=== PATIENT | male | born 1960 | race American Indian/Alaskan Native ===

== ENCOUNTER 2017-09-08 08:10 | Inpatient (IN) | payer MEDICAID, OTHER ==
--- NOTE | 2017-09-08 08:59 | C.PDOC ---
History Of Present Illness 57 y/o male with PMhx of HIV, Endocarditis, toxoplasmosis and heroin abuse presents to ED with complaints of body aches and productive cough for 2 weeks. Patient states he is compliant with HIV medication, last check of CD4 was 3 months ago. Patient denies fever, difficulty breathing, chest pain, sob or any other complaints at this time. No IVDA. Time Seen by Provider: 09/08/17 08:36 Chief Complaint (Nursing): Flu-like Symptoms History Per: Patient History/Exam Limitations: no limitations Onset/Duration Of Symptoms: Days Current Symptoms Are (Timing): Still Present Associated Symptoms: Cough Past Medical History Reviewed: Historical Data, Nursing Documentation, Vital Signs Vital Signs: Last Vital Signs Temp 98.5 F 09/08/17 16:03 Pulse 78 09/08/17 16:03 Resp 18 09/08/17 16:03 BP 140/72 09/08/17 16:03 Pulse Ox 98 09/08/17 16:17 - Medical History PMH: Asthma, HIV Surgical History: No Surg Hx Family History: States: [place] (Father at 60s) - Social History Hx Tobacco Use: No Hx Alcohol Use: Yes Hx Substance Use: Yes (Snorts Heroin) - Immunization History Hx Tetanus Toxoid Vaccination: No Hx Influenza Vaccination: No Hx Pneumococcal Vaccination: No Review Of Systems Constitutional: Negative for: Fever, Chills Cardiovascular: Negative for: Chest Pain Respiratory: Positive for: Cough. Negative for: Shortness of Breath Musculoskeletal: Positive for: Other (bodyaches) Skin: Negative for: Rash Neurological: Negative for: Weakness, Numbness Physical Exam - Physical Exam Appears: Non-toxic, No Acute Distress Skin: Warm, Dry, No Rash Head: Atraumatic, Normacephalic Eye(s): bilateral: Normal Inspection, EOMI Ear(s): Bilateral: Normal Nose: Normal Oral Mucosa: Moist Throat: Normal, No Erythema, No Exudate Neck: Normal ROM, Supple Chest: Symmetrical Cardiovascular: Rhythm Regular Respiratory: Normal Breath Sounds, No Accessory Muscle Use, No Rales, No Rhonchi , No Wheezing Gastrointestinal/Abdominal: Soft, No Tenderness, No Guarding, No Rebound Back: No CVA Tenderness, No Vertebral Tenderness Extremity: Normal ROM, Capillary Refill (<2 seconds) Neurological/Psych: Oriented x3 ED Course And Treatment - Laboratory Results Result Diagrams: 09/08/17 09:13 09/08/17 09:13 ECG: Interpreted By Me, Viewed By Me ECG Rhythm: Sinus Rhythm Rate From EC (BPM) O2 Sat by Pulse Oximetry: 98 (RA) Pulse Ox Interpretation: Normal - Other Rad CXR X-Ray: Viewed By Me, Read By Radiologist Interpretation: Chest x-ray two views. History: Shortness of breath. Comparison: 09/05/2016. Findings: No focal infiltrate or effusion. Heart size within normal limits. Impression: No focal infiltrate or effusion. - CT Scan/US Abd/pelvis Other Rad Studies (CT/US): Read By Radiologist, Radiology Report Reviewed CT/US Interpretation: PROCEDURE: CT Abdomen and Pelvis without Oral or IV contrast. HISTORY: pain. COMPARISON: CT abdomen and pelvis without IV contrast performed 09/11/16. TECHNIQUE: Contiguous axial images of the abdomen and pelvis. No oral or IV contrast administered. Coronal and Sagittal reformats generated and reviewed. Radiation dose: Total exam DLP = 359.29 mGy-cm. This CT exam was performed using one or more of the following dose reduction techniques: Automated exposure control, adjustment of the mA and/or kV according to patient size, and/or use of iterative reconstruction technique. FINDINGS: There is limited evaluation of the solid organs without the administration of IV contrast. LOWER THORAX: No visible consolidation, pleural effusion, or pneumothorax. LIVER: Unremarkable unenhanced appearance. GALLBLADDER AND BILE DUCTS: Unremarkable unenhanced appearance. PANCREAS: Unremarkable unenhanced appearance. SPLEEN: Unremarkable unenhanced appearance. ADRENALS: Unremarkable unenhanced appearance. KIDNEYS AND URETERS : No hydronephrosis or obstructing renal calculus. 2.6 cm right renal hypodensity measures approximately 10 HU, consistent with a cyst. BLADDER: The urinary bladder appears unremarkable. REPRODUCTIVE: Unremarkable. APPENDIX: The appendix appears within normal limits of caliber. No secondary signs of acute appendicitis. BOWEL: The stomach is nondistended. Lack of oral contrast limits evaluation for bowel pathology. The bowel loops appear within normal limits of caliber without evidence of intestinal obstruction. PERITONEUM: No significant free fluid. No definite free air. LYMPH NODES: No bulky lymphadenopathy identified. VASCULATURE: No aortic aneurysm. BONES: No acute osseous abnormality is detected. OTHER FINDINGS: Large fat containing left inguinal hernia. Re-identified tiny fluid within the right lower quadrant near small right inguinal hernia. IMPRESSION: Large fat containing left inguinal hernia. Re-identified tiny fluid within the right lower quadrant knee near small right inguinal hernia. Probable right renal cyst. Progress Note: CXR ordered, Blood work, UA. Case discussed with Dr Mondragon who requests CT Abd/pelvis for hematuria. Case discussed with Dr Harding, agreed upon plan and treatment. Case discussed with social sciences instructor who discussed with Dr. Atwood who agreed. for patient to be admited under his service for opioid dependence. Dr Mondragon made aware. Disposition - Disposition Disposition: HOSPITALIZED Disposition Time: 15:53 Condition: STABLE - Clinical Impression Clinical Impression: HIV (human immunodeficiency virus infection), Hematuria, Heroin abuse - PA / VISCOSITY INSPECTOR / Resident Statement MD/DO has reviewed & agrees with the documentation as recorded. - Scribe Statement The provider has reviewed the documentation as recorded by the Soniaibmynor Price All medical record entries made by the Titus were at my direction and personally dictated by me. I have reviewed the chart and agree that the record accurately reflects my personal performance of the history, physical exam, medical decision making, and the department course for this patient. I have also personally directed, reviewed, and agree with the discharge instructions and disposition.
[2017-09-08 09:17] LABS: BASO % 0.9 % (0.0-2.0); EOS # 0.2 K/uL (0.0-0.7); EOS % 5.6 % (0.0-4.0); HEMOGLOBIN 13.7 g/dL (12.0-18.0); LYMPH # 0.8 K/uL (1.0-4.3); LYMPH % 20.3 % (20.0-40.0); MEAN CELL VOLUME 92.6 fL (80.0-94.0); MEAN CORPUSCULAR HEMOGLOBIN 31.9 pg (27.0-31.0); MEAN CORPUSCULAR HGB CONC 34.4 g/dL (33.0-37.0); MONO # 0.5 K/uL (0.0-0.8); MONO % 13.5 % (0.0-10.0); NEUT # 2.4 K/uL (1.8-7.0); NEUT % 59.7 % (50.0-75.0); NRBC % 0.2 % (0.0-2.0); RBC 4.3 Mil/uL (4.40-5.90); RED CELL DISTRIBUTION WIDTH 12.6 % (11.5-14.5); WHITE BLOOD COUNT 4.1 K/uL (4.8-10.8)
[2017-09-08 09:30] LABS: ALBUMIN 3.8 g/dL (3.5-5.0); ALT/SGPT 13 U/L (21-72); AST/SGOT 23 U/L (17-59); BLOOD UREA NITROGEN 16 mg/dL (9-20); CALCIUM 8.1 mg/dl (8.6-10.4); GFR AFRICAN-AMERICAN > 60; GFR NON-AFRICAN AMERICAN > 60
[2017-09-08 09:31] LABS: SQUAMOUS EPITHIAL 1 /hpf (0-5); URINE BILIRUBIN NEGATIVE (NEGATIVE); URINE BLOOD 3+ (NEGATIVE); URINE CLARITY Hazy (Clear); URINE COLOR Yellow (YELLOW); URINE GLUCOSE (UA) NORMAL (Normal); URINE LEUKOCYTE ESTERASE NEG Leu/uL (Negative); URINE NITRATE NEGATIVE (NEGATIVE); URINE PROTEIN 2+ mg/dL (NEGATIVE)
--- NOTE | 2017-09-08 09:42 | RAD ---
Chest x-ray two views History: Shortness of breath. Comparison: 09/05/2016 Findings: No focal infiltrate or effusion. Heart size within normal limits. Impression: No focal infiltrate or effusion.
[2017-09-08 09:59] LABS: BARBITURATES, UR NEGATIVE (NEGATIVE); BENZODIAZEPINES, UR NEGATIVE (NEGATIVE); PHENCYCLIDINE, UR NEGATIVE (NEGATIVE)
[2017-09-08 10:09] LABS: OPIATES, UR POSITIVE (NEGATIVE)
--- NOTE | 2017-09-08 13:39 | CT ---
PROCEDURE: CT Abdomen and Pelvis without Oral or IV contrast. HISTORY: pain COMPARISON: CT abdomen and pelvis without IV contrast performed 09/11/16 TECHNIQUE: Contiguous axial images of the abdomen and pelvis. No oral or IV contrast administered. Coronal and Sagittal reformats generated and reviewed. Radiation dose: Total exam DLP = 359.29 mGy-cm. This CT exam was performed using one or more of the following dose reduction techniques: Automated exposure control, adjustment of the mA and/or kV according to patient size, and/or use of iterative reconstruction technique. FINDINGS: There is limited evaluation of the solid organs without the administration of IV contrast. LOWER THORAX: No visible consolidation, pleural effusion, or pneumothorax. LIVER: Unremarkable unenhanced appearance. GALLBLADDER AND BILE DUCTS: Unremarkable unenhanced appearance. PANCREAS: Unremarkable unenhanced appearance. SPLEEN: Unremarkable unenhanced appearance. ADRENALS: Unremarkable unenhanced appearance. KIDNEYS AND URETERS: No hydronephrosis or obstructing renal calculus. 2.6 cm right renal hypodensity measures approximately 10 HU, consistent with a cyst. BLADDER: The urinary bladder appears unremarkable. REPRODUCTIVE: Unremarkable. APPENDIX: The appendix appears within normal limits of caliber. No secondary signs of acute appendicitis. BOWEL: The stomach is nondistended. Lack of oral contrast limits evaluation for bowel pathology. The bowel loops appear within normal limits of caliber without evidence of intestinal obstruction. PERITONEUM: No significant free fluid. No definite free air. LYMPH NODES: No bulky lymphadenopathy identified. VASCULATURE: No aortic aneurysm. BONES: No acute osseous abnormality is detected. OTHER FINDINGS: Large fat containing left inguinal hernia. Re-identified tiny fluid within the right lower quadrant near small right inguinal hernia. IMPRESSION: Large fat containing left inguinal hernia. Re-identified tiny fluid within the right lower quadrant knee near small right inguinal hernia. Probable right renal cyst.
[2017-09-08] MEDS ORDERED: Aluminum Hydroxide/Magnesium Hydroxide Susp (30 mL) PO PRN (17:12)
[2017-09-08] MEDS ORDERED: Benzocaine/Menthol (Cepacol) Lozenge PO PRN (17:12)
--- NOTE | 2017-09-08 19:21 | PCM.BM ---
<Divya Zambrano - Last Filed: 09/08/17 19:19> Treatment Plan Problems - Problems identified on initial assessmt potential for opiate withdrawal Date Initiated: 09/08/17 Time Initiated: 19:20 Assessment reference: NA Status: Active anxiety Date Initiated: 09/08/17 Time Initiated: 19:20 Assessment reference: NA Status: Active - Milieu Protocol Maintain good personal hygiene: daily Encourage regular showers, daily Remind patient to perform daily oral care, daily Assist patient to perform ADL's Conduct patient checks and document Observation sheet: Q15 minutes Maintain personal safety: every shift Educate patient to report safety concerns to staff, every shift Monitor environment for contraband/sharps Medication safety: Monitor for expected outcome, potential side effects: every shift, Assess barriers to learning: every shift, Assess readiness for medication education: every shift <Annette Myers - Last Filed: 09/09/17 12:39> Family Contact Family involvement: No known Family/SO - Goals for Treatment Patient goals for treatment: Complete detox and apply for [employer]. 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
--- NOTE | 2017-09-09 14:43 | PCM.PSYCH ---
Initial Psychiatric Evaluation - Initial Psychiatric Evaluation Type of Admission: Voluntary Legal Status: Capacity Chief Complaint (in patient's own words): "Heroin and cocaine" History of Present Illness and Precipitating Events: Patient is a 57 year old AA male admitted for opioid detox. He is currently single and has one son, age 34. He is unemployed and homeless. 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 He has a 30 year history of heroin use. Uses 5 to 10 bags daily, snorts. He admits to 30 years of snorting cocaine. He states he also smoke 1 to 2 packs only when he is using opioids or cocaine. Denies PCP or pills. He has tried using methadone and tried [facility] in the past. He states this is his first time in detox. His plan following detox is to attend rehab. He states that "the drugs are not the same any more and it scares me. I need to stop." He denies any current legal issues. Denies any psychiatric problems or prior hospitalizations. Family history: Denies any psychiatric problems. He states he has a good support system and actively speaks to his mother and siblings. PMH: Asthma, HIV but stopped meds months ago, wants to resume. Current Medications: Active Medications Generic Name Dose Route Start Last Admin Trade Name Freq PRN Reason Stop Dose Admin Al Hydrox/Mg Hydrox/Simethicone 30 ml 09/08/17 17:12 Maalox 30 Ml PO TID PRN Indigestion / Heartburn Benzocaine/Menthol 1 [place] 09/08/17 17:12 09/08/17 19:07 Cepacol Sore Throat PO 1 [place] QID PRN Administration Sore Throat Clonidine HCl 0.1 mg 09/08/17 17:12 Catapres PO Q8 PRN COWS Score More or Equal to 5 Guaifenesin 100 mg 09/08/17 19:04 Robitussin PO Q4H PRN Cough Hydroxyzine HCl 25 mg 09/08/17 17:13 09/09/17 00:03 Atarax PO 25 mg Q6 PRN Administration Agitation Loperamide HCl 2 mg 09/08/17 17:12 Imodium PO Q8 PRN Diarrhea Methadone HCl 15 mg 09/10/17 10:00 Methadone PO 09/13/17 09:59 Q24H SELAM Taper Ondansetron HCl 4 mg 09/08/17 17:12 Zofran Tab PO Q8 PRN Nausea/Vomiting Pneumococcal Polyvalent Vaccine 0.5 ml 09/11/17 10:53 Pneumovax 23 Vaccine IM 09/11/17 10:54 .ONCE ONE Pseudoephedrine HCl 60 mg 09/08/17 17:12 Sudafed Tab PO QID PRN Nasal/Sinus Congestion Past Psychiatric History - Past Psychiatric History Previous Treatment History: None Pertinent Medical Hx (Current Medical&Sleep Prob, Allergies): Allergies Allergy/AdvReac Type Severity Reaction Status Date / Time shellfish Allergy Uncoded 09/05/16 21:11 Atovaquone [Mepron] 750 mg PO BID #0 packet 09/13/16 Azithromycin [Zithromax] 1,200 mg PO Q7D #0 tab 09/13/16 Darunavir Ethanolate [Prezista] 600 mg PO BID #0 tab 09/13/16 Emtricitabine/Tenofovir Diso [Truvada 200 MG-300 MG] 1 tab PO DAILY #0 tab 09/13 Pyrimethamine [Daraprim] 50 mg PO DAILY #0 tab 09/13/16 Ritonavir [Norvir] 100 mg PO BIDBS #0 tab 09/13/16 levETIRAcetam [Keppra] 750 mg PO BID #0 tab 09/13/16 sulfADIAZINE [Sulfadiazine] 1,000 mg PO Q6H #0 tab 09/13/16 Review of Systems - Review of Systems All systems: reviewed and no additional remarkable complaints except - Neurological Neurological: UNREMARKABLE - Psychiatric Psychiatric: Abnormal Sleep Pattern, Anxiety, Difficulty Concentrating. absent : Hallucinations, Homicidal Ideation, Suicidal Ideation Mental Status Examination - Personal Presentation Personal Presentation: Looks stated age - Affect Affect: Constricted - Motor Activity Motor Activity: Calm - Reliability in Providing Information Reliability in Providing Information: Good - Speech Speech: Organized - Mood Mood: Neutral - Formal Thought Process Formal Thought Process: No Impairment - Cognitive Functions Orientation: Person, Place, Situation, Time Sensorium: Lethargic Attention/Concentration: Attentive Abstract Thinking: [place] Estimate of Intelligence: Below average Judgement: Intact, as evidence by: Insight regarding need for hospitalization Memory: Recent intact, as evidence by: Ability to recall events of the day, Remote intact, as evidenced by: Abilit to recall sig. life events - Risk Risk: Withdrawal, Diminished functioning - Strength & Assets Inventory Strength & Assets Inventory: Family support, Cooperative - Limitations Limitations: Other DSM 5 DX - DSM 5 DSM 5 Diagnosis: Opioid use d/o - severe Opioid withdrawal Cocaine use d/o - severe - Recommended/Plan of Treatment Treatment Recommendations and Plan of Treatment: Started on Methadone detox As needed medications Attend groups and activities Supportive therapy and psychoeducation [place] for abstinence CBT for relapse prevention Encourage MAT Refer to rehab or IOP Attend self-help groups as well 32 mins Projected ELOS: 5-6 days Prognosis: good
[2017-09-09 15:56] LABS: URINE BILIRUBIN NEGATIVE (NEGATIVE); URINE BLOOD NEGATIVE (NEGATIVE); URINE CLARITY Clear (Clear); URINE COLOR Yellow (YELLOW); URINE GLUCOSE (UA) NORMAL (Normal); URINE LEUKOCYTE ESTERASE NEG Leu/uL (Negative); URINE NITRATE NEGATIVE (NEGATIVE); URINE PROTEIN 1+ mg/dL (NEGATIVE)
[2017-09-09] MEDS: guaiFENesin 100 mg/5 ml Syrup UD PO PRN ×2 (16:43→21:53)
[2017-09-09] MEDS ORDERED: Magnesium Hydroxide Susp 30 ml UD PO ONE (18:00)
--- NOTE | 2017-09-10 12:57 | PCM.PYCHPN ---
Psychiatric Progress Note - Psychiatric Progress Note Patient seen today, length of contact: 16 mins Patient Chief Complaint: "Tired" Problems Identified/Issues Discussed: The pt is seen, chart reviewed, case discussed with staff. Patient stated he was uncomfortable through most of the night with sweating requiring him to change his gown. The pt is compliant with medications and reports no side-effects. Symptoms are improving but needs more time to stabilize. After care discussed, support and psychoeducation given. Medication Change: Yes Medical Record Reviewed: Yes Mental Status Examination - Cognitive Function Orientation: Person, Place, Situation, Time Memory: Intact Attention: WNL Concentration: WNL Association: WNL Fund of Knowledge: WNL - Mood Mood: Neutral - Affect Affect: Constricted - Formal Thought Process Formal Thought Process: No Impairment - Suicidal Ideation Suicidal Ideation: No - Homicidal Ideation Homicidal Ideation: No Goal/Treatment Plan - Goal/Treatment Plan Need for Continued Stay: Discharge may exacerbated symptoms, Severe functional impairment Progress Toward Problem(s) and Goals/Treatment Plan: Started on Methadone detox As needed medications Attend groups and activities Supportive therapy and psychoeducation [place] for abstinence CBT for relapse prevention Encourage MAT Refer to rehab or IOP Attend self-help groups as well
[2017-09-10] MEDS ORDERED: Vitamins A & D Oint UD Foilpak TOP PRN (13:52)
[2017-09-10] MEDS: Emtricitabine-Tenofovir 200 mg-300 mg Tab PO SCH (14:38)
--- NOTE | 2017-09-10 17:13 | CP.PCM.CON ---
History of Present Illness - History of Present Illness History of Present Illness: 57 y/o male with PMhx of HIV, Endocarditis, toxoplasmosis and heroin abuse presents to ED with complaints of body aches and productive cough for 2 weeks. Patient states he is compliant with HIV medication, last check of CD4 was 3 months ago. Patient denies fever, difficulty breathing, chest pain, sob or any other complaints at this time. No IVDA. 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 Neuro Dr Butts - Medical History PMH: Asthma, HIV Surgical History: No Surg Hx Family History: States: [place] (Father at 60s) Review of Systems - Constitutional Constitutional: As Per HPI - EENT Eyes: absent: As Per HPI, Blind Spots, Blurred Vision, Change in Vision, Decreased Night Vision, Diplopia, Discharge, Dry Eye, Exophthalmos, Floaters, Irritation, Itchy Eyes, Loss of Peripheral Vision, Pain, Photophobia, Requires Corrective Lenses, Sees Flashes, Spots in Vision, Tunnel Vision, Other Visual Disturbances, Loss of Vision, Other Ears: absent: As Per HPI, Decreased Hearing, Ear Discharge, Ear Pain, Tinnitus, Abnormal Hearing, Disequilibrium, Dizziness, Other Nose/Mouth/Throat: absent: As Per HPI, Epistaxis, Nasal Congestion, Nasal Discharge, Nasal Obstruction, Nasal Trauma, Nose Pain, Post Nasal Drip, Sinus Pain, Sinus Pressure, Bleeding Gums, Change in Voice, Dental Pain, Dry Mouth, Dysphagia, Halitosis, Hoarsness, Lip Swelling, Mouth Lesions, Mouth Pain, Odynophagia, Sore Throat, Throat Swelling, Tongue Swelling, Facial Pain, Neck Pain, Neck Mass, Other - Cardiovascular Cardiovascular: absent: As Per HPI, Acrocyanosis, Chest Pain, Chest Pain at Rest , Chest Pain with Activity, Claudication, Diaphoresis, Dyspnea, Dyspnea on Exertion, Edema, Irregular Heart Rhythm, Pain Radiating to Arm/Neck/Jaw, Leg Edema, Leg Ulcers, Lightheadedness, Orthopnea, Palpitations, Paroxysmal Nocturnal Dyspnea, Pedal Edema, Radiating Pain, Rapid Heart Rate, Slow Heart Rate, Syncope, Other - Respiratory Respiratory: absent: As Per HPI, Cough, Dyspnea, Hemoptysis, Dyspnea on Exertion , Wheezing, Snoring, Stridor, Pain on Inspiration, Chest Congestion, Excessive Mucous Production, Change in Mucous Color, Pain with Coughing, Other - Gastrointestinal Gastrointestinal: absent: As Per HPI, Abdominal Pain, Belching, Bloating, Change in Bowel Habits, Change in Stool Character, Coffee Ground Emesis, Constipation, Cramping, Diarrhea, Dyspepsia, Dysphagia, Early Satiety, Excessive Flatus, Fecal Incontinence, Heartburn, Hematemesis, Hematochezia, Loose Stools, Melena, Nausea, Odynophagia, Temesmus, Vomiting, Other - Genitourinary Genitourinary: absent: As Per HPI, Change in Urinary Stream, Difficulty Urinating, Dysuria, Flank Pain, Hematuria, Pyuria, Nocturia, Urinary Incontinence, Urinary Frequency, Urinary Hesitance, Urinary Urgency, Voiding Freq/Small Amts, Freq UTI, Hx Renal/Bladder Calculi, Hx /Renal Surgery, Bladder Distension, Other - Musculoskeletal Musculoskeletal: absent: As Per HPI, Abnormal Gait, Arthralgias, Atrophy, Back Pain, Deformity, Joint Swelling, Limited Range of Motion, Loss of Height, Muscle Cramps, Muscle Weakness, Myalgias, Neck Pain, Numbness, Radiating Pain into Limb, Stiffness, Tingling, Other - Integumentary Integumentary: absent: As Per HPI, Acne, Alopecia, Bleeding Lesions, Change in Hair, Change in Nails, Change in Pigmentation, Changing Lesions, Dry Skin, Erythema, Furuncle, Hirsutism, Lesions, New Lesions, Non-Healing Lesions, Photosensitivity, Pruritus, Rash, Skin Pain, Skin Ulcer, Sores, Striae, Swelling , Unusual Bruising, Wounds, Jaundice, Other - Neurological Neurological: As Per HPI - Psychiatric Psychiatric: absent: As Per HPI, Abnormal Sleep Pattern, Anhedonia, Anxiety, Auditory Hallucinations, Behavioral Changes, Change in Appetite, Change in Libido, Confusion, Depression, Difficulty Concentrating, Hallucinations, Homicidal Ideation, Hopelessness, Irritability, Memory Loss, Mood Swings, Panic Attacks, Paranoia, Suicidal Ideation, Visual Hallucinations, Tactile Hallucinations, Other - Endocrine Endocrine: absent: As Per HPI, Change in Body Appearance, Change in Libido, Cold Intolorance, Deepening of Voice, Excessive Sweating, Fatigue, Flushing, Heat Intolorance, Increase in Ring/Shoe/Hat Size, Palpitations, Polydipsia, Polyphagia, Polyuria, Other - Hematologic/Lymphatic Hematologic: absent: As Per HPI, Easy Bleeding, Easy Bruising, Lymphadenopathy, Other Past Patient History - Infectious Disease Hx of Infectious Diseases: None - Past Medical History & Family History Past Medical History?: Yes - Past Social History Smoking Status: Current Some Days Smoker - CARDIAC Hx Cardiac Disorders: No - PULMONARY Hx Asthma: Yes - NEUROLOGICAL Hx Neurological Disorder: No - HEENT Hx HEENT Problems: No - RENAL Hx Chronic Kidney Disease: No - ENDOCRINE/METABOLIC Hx Endocrine Disorders: No - HEMATOLOGICAL/ONCOLOGICAL Hx Human Immunodeficiency Virus (HIV): Yes - INTEGUMENTARY Hx Dermatological Problems: No - MUSCULOSKELETAL/RHEUMATOLOGICAL Hx Falls: No - GASTROINTESTINAL Hx Gastrointestinal Disorders: No - GENITOURINARY/GYNECOLOGICAL Hx Genitourinary Disorders: No - PSYCHIATRIC Hx Substance Use: Yes - SURGICAL HISTORY Hx Surgeries: No - ANESTHESIA Hx Anesthesia: Yes Hx Anesthesia Reactions: No Hx Malignant Hyperthermia: No Meds Allergies/Adverse Reactions: Allergies Allergy/AdvReac Type Severity Reaction Status Date / Time shellfish Allergy Uncoded 09/05/16 21:11 - Medications Medications: Current Medications Al Hydrox/Mg Hydrox/Simethicone (Maalox 30 Ml) 30 ml PO TID PRN PRN Reason: Indigestion / Heartburn Atovaquone (Mepron) 750 mg PO BID [facility] Benzocaine/Menthol (Cepacol Sore Throat) 1 modesta PO QID PRN PRN Reason: Sore Throat Last Admin: 09/08/17 19:07 Dose: 1 modesta Clonidine HCl (Catapres) 0.1 mg PO Q8 PRN PRN Reason: COWS Score More or Equal to 5 Darunavir (Prezista) 800 mg PO DAILY [facility] Last Admin: 09/10/17 14:38 Dose: 800 mg Emtricitabine/Tenofovir (Truvada 200 Mg-300 Mg) 1 tab PO DAILY [facility] Last Admin: 09/10/17 14:38 Dose: 1 tab Guaifenesin (Robitussin) 100 mg PO Q4H PRN PRN Reason: Cough Last Admin: 09/09/17 21:53 Dose: 100 mg Hydroxyzine HCl (Atarax) 25 mg PO Q6 PRN PRN Reason: Agitation Last Admin: 09/09/17 21:53 Dose: 25 mg Loperamide HCl (Imodium) 2 mg PO Q8 PRN PRN Reason: Diarrhea Methadone HCl (Methadone) 15 mg PO Q24H [facility] PRN Reason: Taper Stop: 09/13/17 09:59 Last Admin: 09/10/17 09:42 Dose: 15 mg Ondansetron HCl (Zofran Tab) 4 mg PO Q8 PRN PRN Reason: Nausea/Vomiting Pneumococcal Polyvalent Vaccine (Pneumovax 23 Vaccine) 0.5 ml IM .ONCE ONE Stop: 09/11/17 10:54 Pseudoephedrine HCl (Sudafed Tab) 60 mg PO QID PRN PRN Reason: Nasal/Sinus Congestion Ritonavir (Norvir) 100 mg PO DAILY [facility] Sulfadiazine (Sulfadiazine) 1,000 mg PO Q6H [facility] Last Admin: 09/10/17 14:40 Dose: Not Given Vitamin A (Vitamin A & D Oint Ud Foilpak) 1 ea TOP BID PRN PRN Reason: Dry skin Last Admin: 09/10/17 14:01 Dose: 1 ea Physical Exam - Constitutional Appears: Non-toxic, Chronically Ill - Head Exam Head Exam: NORMOCEPHALIC - Eye Exam Eye Exam: PERRL. absent: Scleral icterus - ENT Exam ENT Exam: Mucous Membranes Dry - Neck Exam Neck exam: Negative for: Lymphadenopathy - Respiratory Exam Respiratory Exam: Decreased Breath Sounds, Clear to Auscultation Bilateral - Cardiovascular Exam Cardiovascular Exam: REGULAR RHYTHM - GI/Abdominal Exam GI & Abdominal Exam: Diminished Bowel Sounds, Soft. absent: Tenderness - Rectal Exam Rectal Exam: Deferred - Exam Exam: NORMAL INSPECTION - Extremities Exam Extremities exam: Positive for: pedal pulses present. Negative for: calf tenderness, pedal edema, tenderness - Back Exam Back exam: absent: CVA tenderness (L), CVA tenderness (R) - Neurological Exam Neurological exam: Alert, CN II-XII Intact, Oriented x3, Reflexes Normal - Psychiatric Exam Psychiatric exam: Normal Mood - Skin Skin Exam: Dry, Intact Results - Vital Signs Recent Vital Signs: Last Vital Signs Temp 98.4 F 09/10/17 13:00 Pulse 71 09/10/17 13:00 Resp 18 09/10/17 13:00 BP 110/76 09/10/17 13:00 Pulse Ox 97 09/10/17 13:00 - Labs Result Diagrams: 09/08/17 09:13 09/08/17 09:13 Assessment & Plan (1) Toxoplasmosis Status: Acute (2) HIV (human immunodeficiency virus infection) Status: Acute (3) Hematuria Status: Acute (4) Heroin abuse Status: Acute (5) Numbness on right side Status: Acute - Assessment and Plan (Free Text) 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
--- NOTE | 2017-09-10 17:15 | CP.PCM.PN ---
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 will resme Dr Butts is his neurologist Objective - Vital Signs/Intake and Output Vital Signs (last 24 hours): Temp Pulse Resp BP Pulse Ox 98.4 F 71 18 110/76 97 09/10/17 13:00 09/10/17 13:00 09/10/17 13:00 09/10/17 13:00 09/10/17 13:00 - Medications Medications: Current Medications Al Hydrox/Mg Hydrox/Simethicone (Maalox 30 Ml) 30 ml PO TID PRN PRN Reason: Indigestion / Heartburn Atovaquone (Mepron) 750 mg PO BID [facility] Benzocaine/Menthol (Cepacol Sore Throat) 1 modesta PO QID PRN PRN Reason: Sore Throat Last Admin: 09/08/17 19:07 Dose: 1 modesta Clonidine HCl (Catapres) 0.1 mg PO Q8 PRN PRN Reason: COWS Score More or Equal to 5 Darunavir (Prezista) 800 mg PO DAILY [facility] Last Admin: 09/10/17 14:38 Dose: 800 mg Emtricitabine/Tenofovir (Truvada 200 Mg-300 Mg) 1 tab PO DAILY [facility] Last Admin: 09/10/17 14:38 Dose: 1 tab Guaifenesin (Robitussin) 100 mg PO Q4H PRN PRN Reason: Cough Last Admin: 09/09/17 21:53 Dose: 100 mg Hydroxyzine HCl (Atarax) 25 mg PO Q6 PRN PRN Reason: Agitation Last Admin: 09/09/17 21:53 Dose: 25 mg Loperamide HCl (Imodium) 2 mg PO Q8 PRN PRN Reason: Diarrhea Methadone HCl (Methadone) 15 mg PO Q24H [facility] PRN Reason: Taper Stop: 09/13/17 09:59 Last Admin: 09/10/17 09:42 Dose: 15 mg Ondansetron HCl (Zofran Tab) 4 mg PO Q8 PRN PRN Reason: Nausea/Vomiting Pneumococcal Polyvalent Vaccine (Pneumovax 23 Vaccine) 0.5 ml IM .ONCE ONE Stop: 09/11/17 10:54 Pseudoephedrine HCl (Sudafed Tab) 60 mg PO QID PRN PRN Reason: Nasal/Sinus Congestion Ritonavir (Norvir) 100 mg PO DAILY [facility] Sulfadiazine (Sulfadiazine) 1,000 mg PO Q6H [facility] Last Admin: 09/10/17 14:40 Dose: Not Given Vitamin A (Vitamin A & D Oint Ud Foilpak) 1 ea TOP BID PRN PRN Reason: Dry skin Last Admin: 09/10/17 14:01 Dose: 1 ea - Labs Labs: 09/08/17 09:13 09/08/17 09:13 - Constitutional Appears: Non-toxic, Cachectic, Chronically Ill - Head Exam Head Exam: NORMOCEPHALIC - Eye Exam Eye Exam: PERRL. absent: Scleral icterus - ENT Exam ENT Exam: Mucous Membranes Dry - Neck Exam Neck Exam: absent: Lymphadenopathy - Respiratory Exam Respiratory Exam: Decreased Breath Sounds, Clear to Ausculation Bilateral - Cardiovascular Exam Cardiovascular Exam: REGULAR RHYTHM, +S1, +S2 - GI/Abdominal Exam GI & Abdominal Exam: Distended, Soft. absent: Tenderness - Rectal Exam Rectal Exam: Deferred - Exam Exam: NORMAL INSPECTION - Extremities Exam Extremities Exam: absent: Pedal Edema - Back Exam Back Exam: absent: CVA tenderness (L), CVA tenderness (R) - Neurological Exam Neurological Exam: Alert, Awake, CN II-XII Intact, Oriented x3 - Psychiatric Exam Psychiatric exam: Normal Mood - Skin Skin Exam: Dry, Intact Assessment and Plan (1) Toxoplasmosis Status: Acute (2) HIV (human immunodeficiency virus infection) Status: Acute (3) Hematuria Status: Acute (4) Heroin abuse Status: Acute (5) Numbness on right side Status: Acute
[2017-09-10] MEDS: Atovaquone 750 mg/5 ml Susp UD PO SCH (17:42)
--- NOTE | 2017-09-10 22:50 | CP.PCM.CON ---
History of Present Illness - History of Present Illness History of Present Illness: Stopped HIV medicine on his own Toxoplasma Infection Endocarditis Started on Methadone detox Started on a program for h/o 2 substance abuse, Heroin and Cocaine 57 y/o male with PMhx of HIV, Endocarditis, toxoplasmosis and heroin abuse presents to ED with complaints of body aches and productive cough for 2 weeks. Patient states he is compliant with HIV medication, last check of CD4 was 3 months ago. Patient denies fever, difficulty breathing, chest pain, sob or any other complaints at this time. No IVDA. 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 Dr Butts - Medical History PMH: Asthma, HIV Surgical History: No Surg Hx Family History: States: [place] (Father at 60s) Review of Systems - Constitutional Constitutional: As Per HPI EENT Eyes: absent Ears: absent Nose/Mouth/Throat: absent - Cardiovascular Cardiovascular: absent Respiratory Respiratory: absent - Gastrointestinal Gastrointestinal: absent - Genitourinary Genitourinary: absent Musculoskeletal Musculoskeletal - Psychiatric Psychiatric: absent - Endocrine Endocrine: absent - Hematologic/Lymphatic Hematologic: absent Past Patient History - Infectious Disease Hx of Infectious Diseases: treated for acquired immune deficiency syndrome - Past Medical History & Family History Past Medical History?: HIV and Substance abuse - Past Social History Smoking Status: Current Some Days Smoker - CARDIAC Hx Cardiac Disorders: No - PULMONARY Hx Asthma: Yes - NEUROLOGICAL Hx Neurological Disorder: No - HEENT Hx HEENT Problems: No - RENAL Hx Chronic Kidney Disease: No - ENDOCRINE/METABOLIC Hx Endocrine Disorders: No - HEMATOLOGICAL/ONCOLOGICAL Hx Human Immunodeficiency Virus (HIV): Yes - INTEGUMENTARY Hx Dermatological Problems: No - MUSCULOSKELETAL/RHEUMATOLOGICAL Hx Falls: No - GASTROINTESTINAL Hx Gastrointestinal Disorders: No - GENITOURINARY/GYNECOLOGICAL Hx Genitourinary Disorders: No - PSYCHIATRIC Hx Substance Use: Yes - SURGICAL HISTORY Hx Surgeries: No - ANESTHESIA Hx Anesthesia: Yes Hx Anesthesia Reactions: No Hx Malignant Hyperthermia: No Meds Allergies/Adverse Reactions: Allergies Allergy/AdvReac Type Severity Reaction Status Date / Time shellfish Allergy Uncoded 09/05/16 21:11 - Medications Medications: Current Medications Al Hydrox/Mg Hydrox/Simethicone (Maalox 30 Ml) 30 ml PO TID PRN PRN Reason: Indigestion / Heartburn Atovaquone (Mepron) 750 mg PO BID [facility] Benzocaine/Menthol (Cepacol Sore Throat) 1 modesta PO QID PRN PRN Reason: Sore Throat Last Admin: 09/08/17 19:07 Dose: 1 modesta Clonidine HCl (Catapres) 0.1 mg PO Q8 PRN PRN Reason: COWS Score More or Equal to 5 Darunavir (Prezista) 800 mg PO DAILY [facility] Last Admin: 09/10/17 14:38 Dose: 800 mg Emtricitabine/Tenofovir (Truvada 200 Mg-300 Mg) 1 tab PO DAILY [facility] Last Admin: 09/10/17 14:38 Dose: 1 tab Guaifenesin (Robitussin) 100 mg PO Q4H PRN PRN Reason: Cough Last Admin: 09/09/17 21:53 Dose: 100 mg Hydroxyzine HCl (Atarax) 25 mg PO Q6 PRN PRN Reason: Agitation Last Admin: 09/09/17 21:53 Dose: 25 mg Loperamide HCl (Imodium) 2 mg PO Q8 PRN PRN Reason: Diarrhea Methadone HCl (Methadone) 15 mg PO Q24H [facility] PRN Reason: Taper Stop: 09/13/17 09:59 Last Admin: 09/10/17 09:42 Dose: 15 mg Ondansetron HCl (Zofran Tab) 4 mg PO Q8 PRN PRN Reason: Nausea/Vomiting Pneumococcal Polyvalent Vaccine (Pneumovax 23 Vaccine) 0.5 ml IM .ONCE ONE Stop: 09/11/17 10:54 Pseudoephedrine HCl (Sudafed Tab) 60 mg PO QID PRN PRN Reason: Nasal/Sinus Congestion Ritonavir (Norvir) 100 mg PO DAILY [facility] Sulfadiazine (Sulfadiazine) 1,000 mg PO Q6H [facility] Last Admin: 09/10/17 14:40 Dose: Not Given Vitamin A (Vitamin A & D Oint Ud Foilpak) 1 ea TOP BID PRN PRN Reason: Dry skin Last Admin: 09/10/17 14:01 Dose: 1 ea Recent Vital Signs: Last Vital Signs Temp 98.4 F 09/10/17 13:00 Pulse 71 09/10/17 13:00 Resp 18 09/10/17 13:00 BP 110/76 09/10/17 13:00 Pulse Ox 97 09/10/17 13:00 Assessment & Plan (1) Toxoplasmosis Status: Acute (2) HIV (human immunodeficiency virus infection) Status: Acute (3) Hematuria Status: Acute (4) Heroin abuse Status: Acute (5) Numbness on right side Status: Acute - Assessment and Plan (Free Text) 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 Past Patient History - Infectious Disease Hx of Infectious Diseases: None - Past Medical History & Family History Past Medical History?: Yes - Past Social History Smoking Status: Current Some Days Smoker - CARDIAC Hx Cardiac Disorders: No - PULMONARY Hx Asthma: Yes - NEUROLOGICAL Hx Neurological Disorder: No - HEENT Hx HEENT Problems: No - RENAL Hx Chronic Kidney Disease: No - ENDOCRINE/METABOLIC Hx Endocrine Disorders: No - HEMATOLOGICAL/ONCOLOGICAL Hx Human Immunodeficiency Virus (HIV): Yes - INTEGUMENTARY Hx Dermatological Problems: No - MUSCULOSKELETAL/RHEUMATOLOGICAL Hx Falls: No - GASTROINTESTINAL Hx Gastrointestinal Disorders: No - GENITOURINARY/GYNECOLOGICAL Hx Genitourinary Disorders: No - PSYCHIATRIC Hx Substance Use: Yes - SURGICAL HISTORY Hx Surgeries: No - ANESTHESIA Hx Anesthesia: Yes Hx Anesthesia Reactions: No Hx Malignant Hyperthermia: No Meds Home Medications: Home Medication List Medication Instructions Recorded Confirmed Type Atovaquone [Mepron] 750 mg PO BID #60 packet 09/11/17 Rx Darunavir [Prezista] 800 mg PO DAILY #30 tab 09/11/17 Rx Emtricitabine/Tenofovir Diso 1 tab PO DAILY #30 tab 09/11/17 Rx [Truvada 200 MG-300 MG] Ritonavir [Norvir] 100 mg PO DAILY #30 tab 09/11/17 Rx sulfADIAZINE [Sulfadiazine] 1,000 mg PO Q6H #120 tab 09/11/17 Rx Allergies/Adverse Reactions: Allergies Allergy/AdvReac Type Severity Reaction Status Date / Time shellfish Allergy Uncoded 09/05/16 21:11 - Medications Medications: Current Medications Al Hydrox/Mg Hydrox/Simethicone (Maalox 30 Ml) 30 ml PO TID PRN PRN Reason: Indigestion / Heartburn Atovaquone (Mepron) 750 mg PO BID [facility] Last Admin: 09/10/17 17:42 Dose: 750 mg Benzocaine/Menthol (Cepacol Sore Throat) 1 modesta PO QID PRN PRN Reason: Sore Throat Last Admin: 09/08/17 19:07 Dose: 1 modesta Clonidine HCl (Catapres) 0.1 mg PO Q8 PRN PRN Reason: COWS Score More or Equal to 5 Darunavir (Prezista) 800 mg PO DAILY [facility] Last Admin: 09/10/17 14:38 Dose: 800 mg Emtricitabine/Tenofovir (Truvada 200 Mg-300 Mg) 1 tab PO DAILY [facility] Last Admin: 09/10/17 14:38 Dose: 1 tab Guaifenesin (Robitussin) 100 mg PO Q4H PRN PRN Reason: Cough Last Admin: 09/09/17 21:53 Dose: 100 mg Hydroxyzine HCl (Atarax) 25 mg PO Q6 PRN PRN Reason: Agitation Last Admin: 09/09/17 21:53 Dose: 25 mg Loperamide HCl (Imodium) 2 mg PO Q8 PRN PRN Reason: Diarrhea Methadone HCl (Methadone) 15 mg PO Q24H [facility] PRN Reason: Taper Stop: 09/13/17 09:59 Last Admin: 09/10/17 09:42 Dose: 15 mg Ondansetron HCl (Zofran Tab) 4 mg PO Q8 PRN PRN Reason: Nausea/Vomiting Pneumococcal Polyvalent Vaccine (Pneumovax 23 Vaccine) 0.5 ml IM .ONCE ONE Stop: 09/11/17 10:54 Pseudoephedrine HCl (Sudafed Tab) 60 mg PO QID PRN PRN Reason: Nasal/Sinus Congestion Ritonavir (Norvir) 100 mg PO DAILY [facility] Sulfadiazine (Sulfadiazine) 1,000 mg PO Q6H [facility] Last Admin: 09/10/17 19:56 Dose: 1,000 mg Vitamin A (Vitamin A & D Oint Ud Foilpak) 1 ea TOP BID PRN PRN Reason: Dry skin Last Admin: 09/10/17 14:01 Dose: 1 ea Physical Exam - Neurological Exam Additional comments: Mental Status: Awake, Alert Oriented X3 with efforts Speech is fluent coherent Cranial Nerves II to XII: No deficits Motor: Normal Tone, Power DTR 0/4 Toes are down going on Plantar Stimulation Sensory: Reduced sensation peripherally in both UEs and LEs Cerebellar: Normal FNT Stature and Gait: Not tested. Results - Vital Signs Recent Vital Signs: Last Vital Signs Temp 98.6 F 09/10/17 22:00 Pulse 74 01/10/18 22:00 Resp 16 09/10/17 22:00 BP 119/74 09/10/17 22:00 Pulse Ox 97 09/10/17 22:00 - Labs Result Diagrams: 09/08/17 09:13 09/08/17 09:13 Assessment & Plan (1) HIV (human immunodeficiency virus infection) Status: Chronic (2) Hematuria Status: Acute (3) Heroin abuse Status: Acute (4) Toxoplasmosis Status: Acute (5) Asthma Status: Chronic (6) Dizziness Status: Acute (7) Leukocytopenia Status: Acute (8) Numbness on right side Assessment and Plan: R/O Radiculopathy, R/O Neuropathy. Status: Acute (9) Encephalopathy Assessment and Plan: Must be ruled out as a complication of his HIV infection or his Toxoplasma infection. Seizures and CVA are also to be ruled out by appropriate W/U. Status: Acute
--- NOTE | 2017-09-10 23:18 | CARD ---
APPROVED REPORT EKG Measurement Heart [id number] <Conclusion> Normal sinus rhythm Minimal voltage criteria for LVH, may be normal variant Borderline ECG
[2017-09-10] MEDS: guaiFENesin 100 mg/5 ml Syrup UD PO PRN (23:33)
[2017-09-11] MEDS: Emtricitabine-Tenofovir 200 mg-300 mg Tab PO SCH (09:18)
[2017-09-11] MEDS: Atovaquone 750 mg/5 ml Susp UD PO SCH ×2 (10:32→17:37)
[2017-09-11] MEDS ORDERED: Pneumococcal 23-Valent Vaccine IM ONE (10:53)
--- NOTE | 2017-09-11 14:06 | PCM.PYCHPN ---
Psychiatric Progress Note - Psychiatric Progress Note Patient seen today, length of contact: 16 mins Patient Chief Complaint: "I'm feeling good but I don't sleep" Problems Identified/Issues Discussed: The pt is seen, chart reviewed, case discussed with staff. He is still complaining of poor sleep and night sweats. Currently has no other withdrawal symptoms The pt is compliant with medications and reports no side-effects. Symptoms are improving but needs more time to stabilize. After care discussed, support and psychoeducation given. Medication Change: Yes Medical Record Reviewed: Yes Mental Status Examination - Cognitive Function Orientation: Person, Place, Situation, Time Memory: Intact Attention: WNL Concentration: WNL Association: WNL Fund of Knowledge: WNL - Mood Mood: Neutral - Affect Affect: Constricted - Formal Thought Process Formal Thought Process: No Impairment - Suicidal Ideation Suicidal Ideation: No - Homicidal Ideation Homicidal Ideation: No Goal/Treatment Plan - Goal/Treatment Plan Need for Continued Stay: Discharge may exacerbated symptoms, Severe functional impairment Progress Toward Problem(s) and Goals/Treatment Plan: Started on Methadone detox As needed medications Attend groups and activities Supportive therapy and psychoeducation AL for abstinence CBT for relapse prevention Encourage MAT Refer to rehab or IOP Attend self-help groups as well
--- NOTE | 2017-09-11 19:23 | CP.PCM.PN ---
Subjective - Date & Time of Evaluation Date of Evaluation: 09/11/17 Time of Evaluation: 07:00 - Subjective Subjective: restarted on HAART rx seen by Dr Butts advised follow up to check T cells and Viral load Objective - Vital Signs/Intake and Output Vital Signs (last 24 hours): Temp Pulse Resp BP Pulse Ox 98.1 F 74 18 129/84 97 09/11/17 19:15 09/11/17 19:15 09/11/17 19:15 09/11/17 19:15 09/11/17 19:15 - Medications Medications: Current Medications Al Hydrox/Mg Hydrox/Simethicone (Maalox 30 Ml) 30 ml PO TID PRN PRN Reason: Indigestion / Heartburn Atovaquone (Mepron) 750 mg PO BID [facility] Last Admin: 09/11/17 17:37 Dose: 750 mg Benzocaine/Menthol (Cepacol Sore Throat) 1 modesta PO QID PRN PRN Reason: Sore Throat Last Admin: 09/08/17 19:07 Dose: 1 modesta Clonidine HCl (Catapres) 0.1 mg PO Q8 PRN PRN Reason: COWS Score More or Equal to 5 Darunavir (Prezista) 800 mg PO DAILY [facility] Last Admin: 09/11/17 09:19 Dose: 800 mg Emtricitabine/Tenofovir (Truvada 200 Mg-300 Mg) 1 tab PO DAILY [facility] Last Admin: 09/11/17 09:18 Dose: 1 tab Guaifenesin (Robitussin) 100 mg PO Q4H PRN PRN Reason: Cough Last Admin: 09/10/17 23:33 Dose: 100 mg Hydroxyzine HCl (Atarax) 25 mg PO Q6 PRN PRN Reason: Agitation Last Admin: 09/09/17 21:53 Dose: 25 mg Loperamide HCl (Imodium) 2 mg PO Q8 PRN PRN Reason: Diarrhea Methadone HCl (Methadone) 10 mg PO Q24H [facility] PRN Reason: Taper Stop: 09/13/17 09:59 Last Admin: 09/11/17 09:18 Dose: 10 mg Ondansetron HCl (Zofran Tab) 4 mg PO Q8 PRN PRN Reason: Nausea/Vomiting Pseudoephedrine HCl (Sudafed Tab) 60 mg PO QID PRN PRN Reason: Nasal/Sinus Congestion Ritonavir (Norvir) 100 mg PO DAILY [facility] Last Admin: 09/11/17 09:19 Dose: 100 mg Sulfadiazine (Sulfadiazine) 1,000 mg PO Q6H [facility] Last Admin: 09/11/17 13:45 Dose: 1,000 mg Vitamin A (Vitamin A & D Oint Ud Foilpak) 1 ea TOP BID PRN PRN Reason: Dry skin Last Admin: 09/10/17 14:01 Dose: 1 ea - Labs Labs: 09/08/17 09:13 09/08/17 09:13 Assessment and Plan (1) Toxoplasmosis Status: Acute (2) HIV (human immunodeficiency virus infection) Status: Acute (3) Hematuria Status: Acute (4) Heroin abuse Status: Acute (5) Numbness on right side Status: Acute
[2017-09-11] MEDS: guaiFENesin 100 mg/5 ml Syrup UD PO PRN (21:20)
--- NOTE | 2017-09-11 23:50 | CP.PCM.PN ---
Subjective - Date & Time of Evaluation Date of Evaluation: 09/11/17 Time of Evaluation: 21:20 - Subjective Subjective: He is still complaining of poor sleep and night sweats. Currently has no other withdrawal symptoms The pt is compliant with medications and reports no side-effects. Symptoms are improving but needs more time to stabilize. Started on Methadone detox Attend groups and activities Supportive therapy and psycho education. restarted on HAART rx advised follow up to check T cells and Viral load Normal V.S He is moving to a Rehab for Alcohol Abuse All his tests are seen and will have more tests as an out patient. Objective - Vital Signs/Intake and Output Vital Signs (last 24 hours): Temp Pulse Resp BP Pulse Ox 98.1 F 74 18 129/84 97 09/11/17 19:15 09/11/17 19:15 09/11/17 19:15 09/11/17 19:15 09/11/17 19:15 - Medications Medications: Current Medications Al Hydrox/Mg Hydrox/Simethicone (Maalox 30 Ml) 30 ml PO TID PRN PRN Reason: Indigestion / Heartburn Atovaquone (Mepron) 750 mg PO BID [facility] Last Admin: 09/11/17 17:37 Dose: 750 mg Benzocaine/Menthol (Cepacol Sore Throat) 1 modesta PO QID PRN PRN Reason: Sore Throat Last Admin: 09/08/17 19:07 Dose: 1 modesta Clonidine HCl (Catapres) 0.1 mg PO Q8 PRN PRN Reason: COWS Score More or Equal to 5 Darunavir (Prezista) 800 mg PO DAILY [facility] Last Admin: 09/11/17 09:19 Dose: 800 mg Emtricitabine/Tenofovir (Truvada 200 Mg-300 Mg) 1 tab PO DAILY [facility] Last Admin: 09/11/17 09:18 Dose: 1 tab Guaifenesin (Robitussin) 100 mg PO Q4H PRN PRN Reason: Cough Last Admin: 09/11/17 21:20 Dose: 100 mg Hydroxyzine HCl (Atarax) 25 mg PO Q6 PRN PRN Reason: Agitation Last Admin: 09/11/17 21:19 Dose: 25 mg Loperamide HCl (Imodium) 2 mg PO Q8 PRN PRN Reason: Diarrhea Methadone HCl (Methadone) 10 mg PO Q24H [facility] PRN Reason: Taper Stop: 09/13/17 09:59 Last Admin: 09/11/17 09:18 Dose: 10 mg Ondansetron HCl (Zofran Tab) 4 mg PO Q8 PRN PRN Reason: Nausea/Vomiting Pseudoephedrine HCl (Sudafed Tab) 60 mg PO QID PRN PRN Reason: Nasal/Sinus Congestion Ritonavir (Norvir) 100 mg PO DAILY [facility] Last Admin: 09/11/17 09:19 Dose: 100 mg Sulfadiazine (Sulfadiazine) 1,000 mg PO Q6H [facility] Last Admin: 09/11/17 21:19 Dose: 1,000 mg Vitamin A (Vitamin A & D Oint Ud Foilpak) 1 ea TOP BID PRN PRN Reason: Dry skin Last Admin: 09/10/17 14:01 Dose: 1 ea - Labs Labs: 09/08/17 09:13 09/08/17 09:13 Assessment and Plan (1) HIV (human immunodeficiency virus infection) Assessment & Plan: HAART treatment is restarted. Status: Chronic (2) Hematuria Assessment & Plan: Resolved. Status: Acute (3) Heroin abuse Assessment & Plan: On Methadone program. Status: Acute (4) Toxoplasmosis Assessment & Plan: Received appropriate treatment for Toxoplasmosis. Status: Acute (5) Asthma Assessment & Plan: Is in Remission Status: Chronic (6) Dizziness Assessment & Plan: It has almost resolved. Status: Acute (7) Leukocytopenia Assessment & Plan: WBCs are 4.1 Status: Acute (8) Numbness on right side Assessment & Plan: Feeling better and moving his right Upper Extremity. Status: Acute (9) Encephalopathy Assessment & Plan: It is reported to be better. Status: Acute - Assessment and Plan (Free Text) Assessment: He is going to alcohol abuse rehab and he is on a methadone program now for his Heroin abuse and there is no seizures. He was restarted on HAART medicine again for his HIV infection.
--- NOTE | 2017-09-12 08:49 | PCM.PYCHDC ---
Mental Status Examination - Mental Status Examination Orientation: Person, Place, Situation, Time Memory: Intact Mood: Neutral Affect: Broad Speech: Appropriate Attention: WNL Concentration: WNL Association: WNL Fund of Knowledge: WNL Formal Thought Process: No Impairment Suicidal Ideation: No Current Homicidal Ideation?: No Discharge Summary - Discharge Note Reason for Hospitalization: Heroin and cocaine use disorder Consultations:: List each consultation separately and include: 1. Reason for request. 2. Findings. 3. Follow-up Summary of Hospital Course include:: 1. Description of specific treatment plan utilized for patients during their course of treatmen. 2. Summarize the time- course for resolution of acute symptoms and/or regressed behaviors. 3. Describe issues identified and worked on during hospitalization. 4. Describe medication utilized. 5. Describe medical problems identified and treated. 6. Reassessment of suicide risk Summary of Hospital Course: The pt was admitted and started on treatment with psychotherapy, support, psychoeducation and medications. LA and CBT used. The pt attended groups and activities, as well as milieu therapy. All the risks and benefits of medications are discussed and the patient understood and agreed. The pt improved with the treatments provided. After care discussed with the patient. Patient will be starting at [facility] today after discharge. - Final Diagnosis (DSM 5) Condition upon Discharge: STABLE DSM 5: Opioid use d/o - severe Opioid withdrawal Cocaine use d/o - severe Disposition: HOME/ ROUTINE Follow-up Treatment Plan: Continue below medications after discharge. Follow after care plan as discussed. Use relapse prevention skills Return to ER or call 911 if suicidal, homicidal or symptoms relapse. Stay away from stress, alcohol and drugs. See primary doctor regularly and get labs. Prescriptions/Medication Reconciliation: Atovaquone [Mepron] 750 mg PO BID #60 packet Darunavir [Prezista] 800 mg PO DAILY #30 tab Emtricitabine/Tenofovir Diso [Truvada 200 MG-300 MG] 1 tab PO DAILY #30 tab Ritonavir [Norvir] 100 mg PO DAILY #30 tab sulfADIAZINE [Sulfadiazine] 1,000 mg PO Q6H #120 tab - Antipsychotic Medications Pt discharged on 2 or more routine antipsychotic medications: No
[2017-09-12] MEDS: Emtricitabine-Tenofovir 200 mg-300 mg Tab PO SCH (09:24)
[2017-09-12] MEDS: Atovaquone 750 mg/5 ml Susp UD PO SCH (09:27)
[2017-09-12 10:56] VITALS: BP 117/78; PULSE 83; RESP 20; TEMP 97.7; O2SAT 83
[2017-09-12 11:43] LABS: % CD4 (T HELPER CELL) 4 Percent (30-61); % CD8 (SUPPRESSOR T CELL) 56 Percent (12-42); ABSOLUTE CD4 CELLS 41 Cells/mcL (490-1740); ABSOLUTE CD8 CELLS 624 Cells/mcL (180-1170); ABSOLUTE LYMPHOCYTES 1111 Cells/mcL (850-3900); HELPER/SUPPRESSOR RATIO 0.07 Ratio (0.86-5.00)
--- NOTE | 2017-09-12 20:56 | CP.PCM.PN ---
Subjective - Date & Time of Evaluation Date of Evaluation: 09/12/17 Time of Evaluation: 09:00 - Subjective Subjective: He was discharged and transferred to a Rehab Facility [facility]. He is stable and compliant with his medicine and is following directions. F/U as an out patient. Objective - Vital Signs/Intake and Output Vital Signs (last 24 hours): Temp Pulse Resp BP Pulse Ox 97.7 F 83 20 117/78 83 L 09/12/17 10:49 09/12/17 10:49 09/12/17 10:49 09/12/17 10:49 09/12/17 10:49 - Labs Labs: 09/08/17 09:13 09/08/17 09:13 Assessment and Plan (1) HIV (human immunodeficiency virus infection) Status: Chronic (2) Hematuria Status: Acute (3) Heroin abuse Status: Acute (4) Toxoplasmosis Status: Acute (5) Asthma Status: Chronic (6) Dizziness Status: Acute (7) Leukocytopenia Status: Acute (8) Numbness on right side Status: Acute (9) Encephalopathy Status: Acute
== END 2017-09-12 10:45 | disposition home or self-care (01) | DRG 710 ==
LOC: C.ER 08:10 → C.7D 15:39
PROVIDERS: ADMIT Psychiatry & Neurology Psychiatry; ATTEND Psychiatry & Neurology Psychiatry
PROC: HZ2ZZZZ Detoxification Services for Substance Abuse Treatment (ICD-10-PCS; principal; 2017-09-09)
PROC: HZ42ZZZ Group Counseling for Substance Abuse Treatment, Cognitive-Behavioral (ICD-10-PCS; 2017-09-09)
PROC: HZ52ZZZ Individual Psychotherapy for Substance Abuse Treatment, Cognitive-Behavioral (ICD-10-PCS; 2017-09-09)
PROC: HZ59ZZZ Individual Psychotherapy for Substance Abuse Treatment, Supportive (ICD-10-PCS; 2017-09-09)
PROC: HZ56ZZZ Individual Psychotherapy for Substance Abuse Treatment, Psychoeducation (ICD-10-PCS; 2017-09-09)
PROC: HZ46ZZZ Group Counseling for Substance Abuse Treatment, Psychoeducation (ICD-10-PCS; 2017-09-09)
DX: F11.23 Opioid dependence with withdrawal (principal); B20 Human immunodeficiency virus [HIV] disease; B58.9 Toxoplasmosis, unspecified; G93.40 Encephalopathy, unspecified; F10.10 Alcohol abuse, uncomplicated; F14.20 Cocaine dependence, uncomplicated; J45.909 Unspecified asthma, uncomplicated; R31.9 Hematuria, unspecified; Z59.0 Homelessness; R20.0 Anesthesia of skin; F17.210 Nicotine dependence, cigarettes, uncomplicated; F41.9 Anxiety disorder, unspecified; Y90.0 Blood alcohol level of less than 20 mg/100 ml; D72.819 Decreased white blood cell count, unspecified

== ENCOUNTER 2018-11-03 11:52 | Outpatient (CLI) | payer OTHER | END 2018-11-03 11:53 | disposition home or self-care (01) | LOC: C.RADH 11:52 | DX: R05 Cough (principal) ==